=== PATIENT | male | born 1945 | race Caucasian/White ===

== ENCOUNTER 2021-10-23 10:26 | Outpatient (CLI) | payer MEDICARE ==
[2021-10-23 11:23] LABS: Estimated GFR-MDRD - POC Greater than 90
== END 2021-10-23 10:27 | disposition home or self-care (01) ==
LOC: CSHCT 10:26
PROVIDERS: ATTEND Surgery
DX: C18.9 Malignant neoplasm of colon, unspecified (principal); K76.0 Fatty (change of) liver, not elsewhere classified; K57.30 Diverticulosis of large intestine without perforation or abscess without bleeding; I70.90 Unspecified atherosclerosis
CPT/HCPCS: 74177; 82565